=== PATIENT | male | born 1955 | race Caucasian/White ===

== ENCOUNTER 2017-09-27 08:25 | Day surgery (SDC) | payer MEDICARE, MEDICAID ==
[2017-09-27] VITALS (23 sets, daily range): BP systolic 100–136; BP diastolic 47–102
[~2017-09-27] VITALS: Ht 185.4 cm; Wt 69.9 kg
[2017-09-27] MEDS ORDERED: normal saline 1000ml 1,000 ML IV SCH ×2 (09:15→09:26)
[2017-09-27] MEDS ORDERED: midazolam 2 mg/2 ml injection IV PRN (09:30)
[2017-09-27] MEDS ORDERED: heparin sodium, porcine/PF 100unit/ml 5ML syringe ICATH ONE (09:30)
[2017-09-27] MEDS ORDERED: LIDOcaine 1%/PF (10mg/ml) 5ml vial SQ ONE (09:30)
[2017-09-27] MEDS ORDERED: fentaNYL/PF 50MCG/1 ML 2ML syringe IV PRN (09:30)
[2017-09-27 09:31] LABS: BASOPHILS % (AUTO) 0.2 % (0-1); EOSINOPHILS # (AUTO) 0.2 X10'3 (0-0.9); EOSINOPHILS % (AUTO) 1.7 % (0-6); HEMATOCRIT 46.1 % (42.0-52.0); HEMOGLOBIN 15.5 g/dl (14.0-17.9); LYMPHOCYTES # (AUTO) 1.2 X10'3 (1.1-4.8); MEAN CORPUSCULAR HEMOGLOBIN 31.5 PG (27.0-31.0); MEAN CORPUSCULAR HGB CONC 33.7 % (33.0-36.5); MEAN CORPUSCULAR VOLUME 93.6 FL (78-98); MEAN PLATELET VOLUME 10.5 FL (7.4-10.4); MONOCYTES # (AUTO) 1.2 X10'3 (0-0.9); MONOCYTES % (AUTO) 9.5 % (2-12); NEUTROPHILS # (AUTO) 9.5 X10'3 (1.8-7.7); NEUTROPHILS % (AUTO) 78.6 % (42-75); PLATELET COUNT 121 X10'3 (140-440); RED BLOOD COUNT 4.93 X10'6 (4.70-6.10); RED CELL DISTRIBUTION WIDTH 16.2 % (11.5-14.5); WHITE BLOOD COUNT 12.1 X10'3 (4.5-11.0)
[2017-09-27] MEDS ORDERED: oxyCODONE IR 5mg (immed. release) tablet PO ONE ×2 (09:40→14:45)
[2017-09-27] MEDS ORDERED: fentaNYL/PF 50MCG/1 ML 2ML syringe ONE ×2 (09:58→11:10)
[2017-09-27] MEDS ORDERED: midazolam 2 mg/2 ml injection ONE (09:58)
[2017-09-27] MEDS ORDERED: heparin sodium, porcine/PF 100unit/ml 5ML syringe ONE (10:01)
[2017-09-27] MEDS ORDERED: LIDOcaine 1%/PF (10mg/ml) 5ml vial ONE (10:23)
[2017-09-27] MEDS ORDERED: CYAN50TA2 PO (11:02)
[2017-09-27] MEDS ORDERED: FOLI0.4T2 PO (11:02)
[2017-09-27] MEDS ORDERED: BUDE10.2 INH (11:02)
[2017-09-27] MEDS ORDERED: METO50TA17 PO (11:02)
[2017-09-27] MEDS ORDERED: SIMV20TA5 PO (11:02)
[2017-09-27] MEDS ORDERED: ASPI-1265 PO (11:02)
[2017-09-27] MEDS ORDERED: ERGO400T7 PO (11:02)
[2017-09-27] MEDS ORDERED: GABA600T2 PO (11:02)
[2017-09-27] MEDS ORDERED: CHOL2000 PO (11:02)
[2017-09-27] MEDS ORDERED: QUET50TA PO (11:02)
[2017-09-27] MEDS ORDERED: RIVA15TA PO (11:02)
[2017-09-27] MEDS ORDERED: sodium chloride 0.45% 1,000 ML IV SCH (11:27)
[2017-09-27] MEDS ORDERED: morphine 2 MG/ML inj. syringe IV PRN (11:30)
== END 2017-09-27 15:20 | disposition home or self-care (01) ==
LOC: SSTAY O 08:25
PROVIDERS: ATTEND Radiology Diagnostic Radiology
DX: C34.31 Malignant neoplasm of lower lobe, right bronchus or lung (principal); J44.9 Chronic obstructive pulmonary disease, unspecified; I10 Essential (primary) hypertension; G89.29 Other chronic pain; F17.200 Nicotine dependence, unspecified, uncomplicated; Z79.899 Other long term (current) drug therapy; Z98.890 Other specified postprocedural states; Z86.711 Personal history of pulmonary embolism; Z79.82 Long term (current) use of aspirin; Z95.5 Presence of coronary angioplasty implant and graft
CPT/HCPCS: 32405; 36415; 36561; 71045; 76604; 76937; 77001; 77012; 85025; 88341; 88342; 99152; 99153; A6219; C1788; C1894; J1642; J2001; J2250; J3010; J7030; 88173; 88305; A4620